=== PATIENT | female | born 1960 | race Caucasian/White ===

== ENCOUNTER 2019-07-22 10:50 | Emergency (ER) | payer OTHER ==
[~2019-07-22] VITALS: Ht 165.1 cm; Wt 86.8 kg
[~2019-07-22 10:50] MED LIST: MECLIZINE HCL25 MG PO; NO HOME MEDICATIONS
[2019-07-22 11:01] VITALS: TEMP 97.9
[2019-07-22] MEDS ORDERED: XIFAXAN550 MG PO (11:05)
[2019-07-22 11:28] LABS: COLLECTION METHOD CLEAN CATCH
[2019-07-22 11:34] LABS: PH 5 (5-8); SQUAMOUS EPITHELIAL 0-2 /hpf; URINE APPEARANCE Clear; URINE BACTERIA None Seen /hpf; URINE BILIRUBIN Negative (NEGATIVE); URINE BLOOD Negative (NEGATIVE); URINE COLOR Yellow; URINE GLUCOSE Negative (NEGATIVE); URINE KETONE Negative (NEGATIVE); URINE LEUKOCYTE ESTERASE Negative (NEGATIVE); URINE NITRATE Negative (NEGATIVE); URINE PROTEIN(semi-quant) Negative (NEGATIVE); URINE RBC 0-2 /hpf; URINE UROBILINOGEN Negative (NEGATIVE)
[2019-07-22 11:45] LABS: BASO # 0.1 (0.0-0.2); BASO % 1.8 % (0.0-2.0); EOS # 0.3 (0.0-0.7); EOS % 3.7 % (0-4.0); GRAN # 4.3 (1.4-6.5); GRAN % 63.6 % (42.2-75.2); HEMATOCRIT 49.8 % (37.0-47.0); HEMOGLOBIN 16.8 g/dl (12.5-16.0); LYMPH # 1.5 (1.2-3.4); LYMPH % 22.3 % (20.0-51.0); MEAN CELL VOLUME 89 fl (80.0-100.0); MEAN CORPUSCULAR HEMOGLOBIN 30 pg (27.0-31.0); MEAN CORPUSCULAR HGB CONC 34 g/dl (33.0-37.0); MEAN PLATELET VOLUME 10.4 fl (7.4-10.4); MONO # 0.6 (0.1-0.6); MONO % 8.5 % (1.7-9.3); PLATELET COUNT 265 K/mm3 (130-400); RED BLOOD COUNT 5.63 M/mm3 (4.10-5.30); REDCELL DISTRIBUTION WIDTH-CV 12.8 % (11.5-14.5)
[2019-07-22 11:57] LABS: ALBUMIN 4.7 gm/dL (3.5-5.0); BILIRUBIN,TOTAL 0.9 mg/dL (0.0-1.0); C-REACTIVE PROTEIN 0.6 mg/dL (0.0-0.9); CALCIUM 9.9 mg/dL (8.4-10.2); CREATININE, serum 0.65 (0.52-1.25); TOTAL PROTEIN 7.9 gm/dL (6.4-8.2)
[2019-07-22] MEDS ORDERED: PRILOSEC 20MG20 MG PO (14:36)
[2019-07-22] MEDS ORDERED: ZOFRAN ODT4 MG PO (14:36)
[2019-07-22 14:50] VITALS: BP 153/85; PULSE 76
== END 2019-07-22 15:03 | disposition home or self-care (01) ==
LOC: COL.ER 10:50 → SURG 13:29 → COL.ER 13:29 → SURG 13:29 → COL.ER 15:03
PROVIDERS: Emergency Medicine
DX: K81.1 Chronic cholecystitis (principal); K58.9 Irritable bowel syndrome, unspecified; Z90.89 Acquired absence of other organs; Z98.51 Tubal ligation status; Z90.49 Acquired absence of other specified parts of digestive tract
CPT/HCPCS: J2405; J7030; Q9967

== ENCOUNTER 2019-07-25 16:53 | Emergency (ER) | payer OTHER ==
[~2019-07-25] VITALS: Ht 165.1 cm; Wt 85.5 kg
[~2019-07-25 16:53] MED LIST changes: +PRILOSEC 20MG20 MG PO; +XIFAXAN550 MG PO; +ZOFRAN ODT4 MG PO
[2019-07-25 17:09] VITALS: BP 127/74; TEMP 97.9
[2019-07-25 17:53] LABS: BASO # 0.1 (0.0-0.2); BASO % 1.5 % (0.0-2.0); EOS # 0.3 (0.0-0.7); EOS % 3.3 % (0-4.0); GRAN # 5.5 (1.4-6.5); GRAN % 65.4 % (42.2-75.2); HEMATOCRIT 49.8 % (37.0-47.0); HEMOGLOBIN 16.8 g/dl (12.5-16.0); LYMPH # 1.9 (1.2-3.4); LYMPH % 22.4 % (20.0-51.0); MEAN CELL VOLUME 89 fl (80.0-100.0); MEAN CORPUSCULAR HEMOGLOBIN 30 pg (27.0-31.0); MEAN CORPUSCULAR HGB CONC 34 g/dl (33.0-37.0); MEAN PLATELET VOLUME 11.3 fl (7.4-10.4); MONO # 0.6 (0.1-0.6); MONO % 7.3 % (1.7-9.3); PLATELET COUNT 279 K/mm3 (130-400); RED BLOOD COUNT 5.63 M/mm3 (4.10-5.30); REDCELL DISTRIBUTION WIDTH-CV 12.7 % (11.5-14.5)
[2019-07-25 18:34] LABS: ALANINE AMINOTRANSFERASE 16 U/L (9-52); ALBUMIN 4.5 gm/dL (3.5-5.0); ALKALINE PHOSPHATASE 111 U/L (50-136); ANION GAP 9 mmol/L (7-16); AST,SGOT 28 U/L (15-37); BILIRUBIN,TOTAL 0.9 mg/dL (0.0-1.0); BLOOD UREA NITROGEN 10 mg/dL (7-17); CALCIUM 9.8 mg/dL (8.4-10.2); CARBON DIOXIDE 26 mmol/L (22-30); CHLORIDE 106 mmol/L (98-107); CREATININE, serum 0.68 (0.52-1.25); GLUCOSE 102 mg/dL (74-106); LIPASE 46 U/L (23-300); POTASSIUM 3.8 mmol/L (3.4-5.0); SODIUM 141 mmol/L (137-145); TOTAL PROTEIN 7.6 gm/dL (6.4-8.2)
[2019-07-25 18:39] LABS: C-REACTIVE PROTEIN 0.5 mg/dL (0.0-0.9)
[2019-07-25 18:43] LABS: TROPONIN-I < 0.012 ng/mL (0.000-0.035)
[2019-07-25 19:11] LABS: COLLECTION METHOD CLEAN CATCH
[2019-07-25 19:16] LABS: PH 6 (5-8); SQUAMOUS EPITHELIAL None Seen /hpf; URINE APPEARANCE Clear; URINE BACTERIA None Seen /hpf; URINE BILIRUBIN Negative (NEGATIVE); URINE BLOOD Negative (NEGATIVE); URINE COLOR Straw; URINE GLUCOSE Negative (NEGATIVE); URINE KETONE Trace (NEGATIVE); URINE LEUKOCYTE ESTERASE Negative (NEGATIVE); URINE NITRATE Negative (NEGATIVE); URINE PROTEIN(semi-quant) Negative (NEGATIVE); URINE RBC 0-2 /hpf; URINE UROBILINOGEN Negative (NEGATIVE)
[2019-07-25] MEDS ORDERED: PROTONIX 40MG T40 MG PO (19:23)
[2019-07-25] MEDS ORDERED: CARAFATE 1GM1 G PO (19:23)
[2019-07-25] MEDS ORDERED: ZOFRAN ODT4 MG PO (19:52)
[2019-07-25] MEDS ORDERED: PHENERGAN 25 TA25 MG PO (19:52)
[2019-07-25 20:48] VITALS: PULSE 98
== END 2019-07-25 20:45 | disposition home or self-care (01) ==
LOC: COL.ER 16:53
PROVIDERS: Emergency Medicine
DX: R10.10 Upper abdominal pain, unspecified (principal); F17.210 Nicotine dependence, cigarettes, uncomplicated; Z90.49 Acquired absence of other specified parts of digestive tract; Z90.89 Acquired absence of other organs; Z98.890 Other specified postprocedural states
CPT/HCPCS: C9113; J2270; J2405; J2550; J7030; Q9967

== ENCOUNTER 2019-07-29 17:23 | Emergency (ER) | payer OTHER ==
[~2019-07-29] VITALS: Ht 165.1 cm; Wt 89.8 kg
[~2019-07-29 17:23] MED LIST changes: +CARAFATE 1GM1 G PO; +PHENERGAN 25 TA25 MG PO; +PROTONIX 40MG T40 MG PO
[2019-07-29 17:26] VITALS: BP 157/79; TEMP 97.8
[2019-07-29 18:30] VITALS: PULSE 87
== END 2019-07-29 18:30 | disposition home or self-care (01) ==
LOC: COL.ER 17:23
DX: K29.70 Gastritis, unspecified, without bleeding (principal); K58.9 Irritable bowel syndrome, unspecified; F17.210 Nicotine dependence, cigarettes, uncomplicated; Z90.710 Acquired absence of both cervix and uterus; Z90.89 Acquired absence of other organs; Z98.51 Tubal ligation status